=== PATIENT | female | born 1965 ===

== ENCOUNTER 2016-12-20 10:08 | Day surgery (SDC) | payer OTHER ==
[2016-12-20 10:56] VITALS: BMI 24.7
[2016-12-20 11:17] VITALS: O2SAT 100
[2016-12-20] MEDS ORDERED: Propofol 10 mg/ml Inj (20 ML) ONE (11:44)
--- NOTE | 2016-12-20 11:46 | CP.SDSHP ---
Same Day Surgery H & P - History Proposed Procedure: COLONSCOPY Pre-Op Diagnosis: SEE NOTES - Previous Medical/Surgical History Misc: Other Pain: 4.Moderate Pain - Allergies Allergies: Allergies No Known Allergies Allergy (Verified 12/20/16 10:53) - Physical Exam General Appearance: N Vital Signs: Vital Signs 12/20/16 10:59 Temperature 99.3 F Pulse Rate 73 Respiratory 16 Rate Blood Pressure 142/84 O2 Sat by Pulse 100 Oximetry Mental Status: Alert & Oriented x3 Neuro: WNL Heart: WNL Lungs: WNL GI: Other - {Optional Preform as Required} Breast: WNL Abdomen: Other Rectal: Other Integument: WNL : WNL Ortho: WNL ENT: WNL - Impression Pt. Evaluated Today:Candidate for Anesthesia & Procedure: Yes - Date & Time Time: 11:46 Short Stay Discharge - Short Stay Discharge Admitting Diagnosis/Reason for Visit: DIARRHEA Disposition: HOME/ ROUTINE
[2016-12-20] MEDS ORDERED: Belladonna-Phenobarbital PO STA (11:48)
[2016-12-20] MEDS ORDERED: Glucagon Recombinant 1 mg Inj ONE (11:56)
[2016-12-20 13:59] VITALS: BP 109/74; PULSE 78; RESP 11; TEMP 97.9
== END 2016-12-20 13:15 | disposition home or self-care (01) ==
LOC: C.ENDO 10:08
PROVIDERS: ATTEND Specialist
DX: K57.90 Diverticulosis of intestine, part unspecified, without perforation or abscess without bleeding (principal); K64.4 Residual hemorrhoidal skin tags; K64.8 Other hemorrhoids
CPT/HCPCS: 45378; 84703; 88305; J2704

== ENCOUNTER 2017-01-10 07:21 | Day surgery (SDC) | payer OTHER ==
[2017-01-10 08:15] VITALS: BMI 23.8
[2017-01-10] MEDS ORDERED: Propofol 10 mg/ml Inj (20 ML) ONE (08:37)
--- NOTE | 2017-01-10 08:37 | CP.SDSHP ---
Same Day Surgery H & P - History Proposed Procedure: EGD Pre-Op Diagnosis: SEE NOTES - Previous Medical/Surgical History Neuro: Backaches Misc: Other Pain: 4.Moderate Pain - Allergies Allergies: Allergies No Known Allergies Allergy (Verified 12/20/16 10:53) - Physical Exam General Appearance: N Vital Signs: Vital Signs 01/10/17 07:55 Temperature 97.0 F L Pulse Rate 74 Respiratory 19 Rate Blood Pressure 126/79 O2 Sat by Pulse 97 Oximetry Mental Status: Alert & Oriented x3 Neuro: WNL Heart: WNL Lungs: WNL GI: Other - {Optional Preform as Required} Breast: WNL Abdomen: Other Rectal: Other Integument: WNL : WNL Ortho: Other ENT: WNL - Impression Pt. Evaluated Today:Candidate for Anesthesia & Procedure: Yes - Date & Time Time: 08:37 Short Stay Discharge - Short Stay Discharge Admitting Diagnosis/Reason for Visit: DYSPEPSIA Disposition: HOME/ ROUTINE
[2017-01-10 08:39] VITALS: O2SAT 100
[2017-01-10] MEDS ORDERED: Belladonna-Phenobarbital PO STA (08:46)
[2017-01-10 09:07] VITALS: TEMP 97.3
[2017-01-10] MEDS ORDERED: Sucralfate 1 gm/10 ml Oral Susp UD PO ONE (09:10)
[2017-01-10] MEDS ORDERED: Lactated Ringer's 500 ML IV SCH (09:15)
[2017-01-10 09:18] VITALS: PULSE 60
[2017-01-10 10:16] VITALS: BP 116/61; RESP 15
== END 2017-01-10 14:10 | disposition home or self-care (01) ==
LOC: C.ENDO 07:21
PROVIDERS: ATTEND Specialist
DX: K29.50 Unspecified chronic gastritis without bleeding (principal); K21.0 Gastro-esophageal reflux disease with esophagitis; K44.9 Diaphragmatic hernia without obstruction or gangrene; K30 Functional dyspepsia
CPT/HCPCS: 43239; 84703; 88305; J2704; J7120